=== PATIENT | male | born 1995 | race African-American/Black ===

== ENCOUNTER 2020-10-01 11:10 | Emergency (ER) | payer MEDICAID ==
[~2020-10-01] VITALS: Ht 177.8 cm; Wt 86.0 kg
[2020-10-01 11:20] VITALS: BP 136/88
[2020-10-01] MEDS ORDERED: IBUPROFEN 600MG TABLET PO ONE (12:30)
== END 2020-10-01 14:12 | disposition home or self-care (01) ==
LOC: ER 11:10
DX: M25.571 Pain in right ankle and joints of right foot (principal); W01.0XXA Fall on same level from slipping, tripping and stumbling without subsequent striking against object, initial encounter; Y93.9 Activity, unspecified; Y92.9 Unspecified place or not applicable; Z98.890 Other specified postprocedural states
CPT/HCPCS: 73610; 73630; 99284; Z7610